=== PATIENT | male | born 1945 | race Caucasian/White ===

== ENCOUNTER 2021-12-19 06:16 | Emergency (ER) | payer MEDICARE, BC ==
[2021-12-19] MEDS ORDERED: Ketorolac Tromethamine 30 MG/ML VIAL ONE (06:31)
[2021-12-19] MEDS ORDERED: HYDROcodone/Acetaminophen 5/325 mg Tablet ONE (06:31)
== END 2021-12-19 08:12 | disposition home or self-care (01) ==
LOC: CSHERS 06:16
DX: M25.461 Effusion, right knee (principal); I48.91 Unspecified atrial fibrillation; I50.9 Heart failure, unspecified; Z79.899 Other long term (current) drug therapy
CPT/HCPCS: 96374; J1885

== ENCOUNTER 2023-01-20 07:20 | Emergency (ER) | payer MEDICARE, BC ==
[2023-01-20 08:11] LABS: #Eosinphils 0.1 10x3/uL (0.0-0.5); #Monocytes 0.5 10x3/uL (0.0-1.1); #Neutrophils 2.7 10x3/uL (1.5-8.4); %Basophils 0.6 % (0.0-2.0); %Eosinophils 1.3 % (0.0-6.0); %Lymphocytes 32.2 % (18.0-47.0); %Monocytes 9.5 % (0.0-10.0); %Neutrophils 56.2 % (40.0-75.0); Hematocrit 37.8 % (38.8-50.0); Hemoglobin 12.8 g/dL (13.5-17.5); Mean Corpuscular HGB CONC 33.9 g/dL (32.0-36.0); Mean Corpuscular Hemoglobin 32.2 pg (27.0-33.0); Mean Corpuscular Volume 95.2 fl (81.2-95.1); Mean Platelet Volume 10.2 fl (7.4-10.4); Platelet Count 161 10x3/uL (150-450); RBC Distribution Width 13.9 % (11.5-14.5); Red Blood Cell (RBC) Count 3.97 10x6/uL (4.32-5.72); White Blood Cell (WBC) Count 4.7 10x3/uL (3.5-10.5)
[2023-01-20 08:27] LABS: ALT (SGPT) 14 U/L (8-55); AST (SGOT) 24 U/L (5-34); Albumin 3.9 g/dL (3.4-4.8); Alkaline Phosphatase 142 U/L (40-110); Anion Gap 16 mmol/L (10-20); BUN (Urea Nitrogen) 18 mg/dL (8.4-25.7); Bilirubin, Total 1.1 mg/dL (0.2-1.2); Calc. Creatinine Clearance 0 mL/min (70-130); Calcium 8.5 mg/dL (7.8-10.44); Carbon Dioxide 23 mmol/L (23-31); Chloride 106 mmol/L (98-107); Estimated GFR 88; Globulin 2.9 g/dL (2.4-3.5); Glucose 97 mg/dL (83-110); Potassium 4.3 mmol/L (3.5-5.1); Protein, Total 6.8 g/dL (5.8-8.1); Sodium 141 mmol/L (136-145)
[2023-01-20 08:36] LABS: INR-International Normal Ratio 1.2; PTT 38.4 sec (22.0-33.0); Prothrombin Time 12.6 sec (9.5-12.1)
[2023-01-20] MEDS ORDERED: Iopamidol 300 61% 100 ML VIAL FS ONE (15:45)
== END 2023-01-20 10:55 | disposition home or self-care (01) ==
LOC: CSHERS 07:20
DX: K57.92 Diverticulitis of intestine, part unspecified, without perforation or abscess without bleeding (principal); K62.5 Hemorrhage of anus and rectum; K21.9 Gastro-esophageal reflux disease without esophagitis; I48.91 Unspecified atrial fibrillation
CPT/HCPCS: 74177; 80053; 82274; 85025; 85610; 85730; 86850; 86900; 86901; Q9967

== ENCOUNTER 2023-03-15 06:25 | Observation (INO) | payer MEDICARE, BC ==
[2023-03-15 07:19] LABS: ALT (SGPT) 18 U/L (8-55); AST (SGOT) 24 U/L (5-34); Albumin 3.8 g/dL (3.4-4.8); Alkaline Phosphatase 144 U/L (40-110); Anion Gap 13 mmol/L (10-20); BUN (Urea Nitrogen) 25 mg/dL (8.4-25.7); Bilirubin, Total 1.2 mg/dL (0.2-1.2); Calc. Creatinine Clearance 0 mL/min (70-130); Calcium 8.6 mg/dL (7.8-10.44); Carbon Dioxide 24 mmol/L (23-31); Chloride 104 mmol/L (98-107); Estimated GFR 81; Globulin 2.8 g/dL (2.4-3.5); Glucose 97 mg/dL (83-110); INR-International Normal Ratio 1.1; Iron 97 ug/dL (65-175); Iron Binding Capacity, Total 380 mcg/dL (261-462); PTT 27.3 sec (22.0-33.0); Potassium 4.2 mmol/L (3.5-5.1); Protein, Total 6.6 g/dL (5.8-8.1); Prothrombin Time 11.9 sec (9.5-12.1); Sodium 137 mmol/L (136-145)
[2023-03-15 07:24] LABS: #Eosinphils 0.1 10x3/uL (0.0-0.5); #Monocytes 0.5 10x3/uL (0.0-1.1); #Neutrophils 2.8 10x3/uL (1.5-8.4); %Basophils 0.8 % (0.0-2.0); %Eosinophils 1.7 % (0.0-6.0); %Lymphocytes 26.8 % (18.0-47.0); %Monocytes 10.6 % (0.0-10.0); %Neutrophils 59.9 % (40.0-75.0); Hemoglobin 12.3 g/dL (13.5-17.5); Mean Corpuscular HGB CONC 34.2 g/dL (32.0-36.0); Mean Corpuscular Volume 96.5 fl (81.2-95.1); Platelet Count 146 10x3/uL (150-450); RBC Distribution Width 13.7 % (11.5-14.5); Red Blood Cell (RBC) Count 3.73 10x6/uL (4.32-5.72); White Blood Cell (WBC) Count 4.7 10x3/uL (3.5-10.5)
[2023-03-15] MEDS ORDERED: Acetaminophen 325 MG TAB PO PRN (08:51)
[2023-03-15] MEDS ORDERED: Amlodipine 5 MG TAB PO SCH (10:45)
[2023-03-15] MEDS ORDERED: ALPRAZolam 0.25 MG TAB PO SCH (10:45)
[2023-03-15] MEDS ORDERED: Multivitamin W/ Minerals 1 TAB PO SCH (11:00)
[2023-03-15] MEDS ORDERED: Senokot S 8.6-50 MG TAB PO SCH (11:00)
[2023-03-15] MEDS ORDERED: Magnesium Oxide 400 MG TAB PO SCH (11:00)
[2023-03-15] MEDS ORDERED: GoLYTELY 4,000 ml Bottle PO SCH (16:00)
[2023-03-15 16:36] VITALS: BMI 26.2
[2023-03-15] MEDS: Carvedilol 3.125 MG TAB PO SCH (16:48)
[2023-03-15] MEDS: ALPRAZolam 0.25 MG TAB PO SCH (21:33)
[2023-03-15] MEDS: Tamsulosin HCl 0.4 MG CAP PO SCH (21:33)
[2023-03-15] MEDS: Senokot S 8.6-50 MG TAB PO SCH (21:59)
[2023-03-16 04:32] LABS: Anion Gap 13 mmol/L (10-20); BUN (Urea Nitrogen) 15 mg/dL (8.4-25.7); Calc. Creatinine Clearance 96 mL/min (70-130); Calcium 8.3 mg/dL (7.8-10.44); Carbon Dioxide 27 mmol/L (23-31); Chloride 106 mmol/L (98-107); Estimated GFR 90; Glucose 86 mg/dL (83-110); Potassium 3.9 mmol/L (3.5-5.1); Sodium 142 mmol/L (136-145)
[2023-03-16 04:42] LABS: #Eosinphils 0.1 10x3/uL (0.0-0.5); #Monocytes 0.6 10x3/uL (0.0-1.1); #Neutrophils 2.2 10x3/uL (1.5-8.4); %Basophils 0.6 % (0.0-2.0); %Eosinophils 1.4 % (0.0-6.0); %Lymphocytes 40.8 % (18.0-47.0); %Monocytes 12.1 % (0.0-10.0); %Neutrophils 44.9 % (40.0-75.0); Hematocrit 32.2 % (38.8-50.0); Hemoglobin 10.9 g/dL (13.5-17.5); Mean Corpuscular HGB CONC 33.9 g/dL (32.0-36.0); Mean Corpuscular Hemoglobin 32.6 pg (27.0-33.0); Mean Corpuscular Volume 96.4 fl (81.2-95.1); Mean Platelet Volume 10.8 fl (7.4-10.4); Platelet Count 137 10x3/uL (150-450); RBC Distribution Width 13.9 % (11.5-14.5); Red Blood Cell (RBC) Count 3.34 10x6/uL (4.32-5.72)
[2023-03-16] MEDS ORDERED: FLU VACC QS2023(65UP)/MF59C/PF 60 MCG/0.5 ML SYRINGE IM ONE (09:00)
[2023-03-16] MEDS: Magnesium Oxide 400 MG TAB PO SCH (09:07)
[2023-03-16] MEDS: Multivitamin W/ Minerals 1 TAB PO SCH (09:08)
[2023-03-16] MEDS: Carvedilol 3.125 MG TAB PO SCH ×2 (09:08→17:48)
[2023-03-16] MEDS: ALPRAZolam 0.25 MG TAB PO SCH ×2 (09:09→20:44)
[2023-03-16] MEDS: Amlodipine 5 MG TAB PO SCH (09:11)
[2023-03-16] MEDS: Senokot S 8.6-50 MG TAB PO SCH ×2 (09:21→20:43)
[2023-03-16] MEDS ORDERED: PROPOFOL 20 ML ONE ×2 (12:11→12:31)
[2023-03-16] MEDS: Tamsulosin HCl 0.4 MG CAP PO SCH (20:43)
[2023-03-17] MEDS: ALPRAZolam 0.25 MG TAB PO SCH (08:24)
[2023-03-17] MEDS: Multivitamin W/ Minerals 1 TAB PO SCH (08:24)
[2023-03-17] MEDS: Magnesium Oxide 400 MG TAB PO SCH (08:24)
[2023-03-17] MEDS: Carvedilol 3.125 MG TAB PO SCH (08:24)
[2023-03-17] MEDS: Amlodipine 5 MG TAB PO SCH (08:24)
[2023-03-17] MEDS: Senokot S 8.6-50 MG TAB PO SCH (08:49)
[2023-03-17 09:10] LABS: Anion Gap 12 mmol/L (10-20); BUN (Urea Nitrogen) 9 mg/dL (8.4-25.7); Calc. Creatinine Clearance 86 mL/min (70-130); Calcium 8.1 mg/dL (7.8-10.44); Carbon Dioxide 25 mmol/L (23-31); Chloride 105 mmol/L (98-107); Estimated GFR 87; Glucose 145 mg/dL (83-110); Potassium 4.1 mmol/L (3.5-5.1); Sodium 138 mmol/L (136-145)
[2023-03-17 09:21] LABS: Hematocrit 33.4 % (38.8-50.0); Hemoglobin 11.2 g/dL (13.5-17.5)
[2023-03-17 12:29] VITALS: BP 133/86; TEMP 98.3
== END 2023-03-17 13:20 | disposition home or self-care (01) ==
LOC: SUATTDRO 06:25 → CSHERS 06:25 → CSHTELE 10:24
PROVIDERS: ADMIT Internal Medicine; ATTEND Internal Medicine
DX: K57.30 Diverticulosis of large intestine without perforation or abscess without bleeding (principal); K64.8 Other hemorrhoids; K52.9 Noninfective gastroenteritis and colitis, unspecified; D50.0 Iron deficiency anemia secondary to blood loss (chronic); I25.10 Atherosclerotic heart disease of native coronary artery without angina pectoris; I48.91 Unspecified atrial fibrillation; F41.9 Anxiety disorder, unspecified; K21.9 Gastro-esophageal reflux disease without esophagitis; N40.0 Benign prostatic hyperplasia without lower urinary tract symptoms; Z90.49 Acquired absence of other specified parts of digestive tract; Z90.89 Acquired absence of other organs; Z98.890 Other specified postprocedural states; Z79.01 Long term (current) use of anticoagulants; Z79.899 Other long term (current) drug therapy
CPT/HCPCS: 43235; 80048 ×2; 80053; 82728; 83540; 83550; 85014; 85018; 85025 ×2; 85610; 85730; 86850; 86900; 86901; 99285; G0378 ×3; 36415; J2704

== ENCOUNTER 2024-11-11 12:49 | Inpatient (IN) | payer MEDICARE ==
[~2024-11-11 12:49] MED LIST: Iopamidol 300 61% 100 ML VIAL FS ONE
[2024-11-11 13:37] LABS: Anion Gap 13 mmol/L (10-20); BUN (Urea Nitrogen) 19 mg/dL (8.4-25.7); Calc. Creatinine Clearance 0 mL/min (70-130); Calcium 8.4 mg/dL (7.8-10.44); Carbon Dioxide 24 mmol/L (23-31); Chloride 105 mmol/L (98-107); Glucose 95 mg/dL (83-110); Potassium 4.1 mmol/L (3.5-5.1); Sodium 138 mmol/L (136-145)
[2024-11-11 13:43] LABS: #Basophils 0.04 10x3/uL (0.0-0.2); #Eosinophils 0.04 10x3/uL (0.0-0.5); #Monocytes 0.39 10x3/uL (0.0-1.1); #Neutrophils 2.21 10x3/uL (1.5-8.4); %Basophils 1.0 % (0.0-2.0); %Eosinophils 1.0 % (0.0-6.0); %Lymphocytes 34.9 % (18.0-47.0); %Monocytes 9.4 % (0.0-10.0); %Neutrophils 53.5 % (40.0-75.0); Hematocrit 38.3 % (38.8-50.0); Hemoglobin 12.9 g/dL (13.5-17.5); Mean Corpuscular Hemoglobin 32.1 pg (27.0-33.0); Mean Corpuscular Volume 95.3 fL (81.2-95.1); Platelet Count 146 10x3/uL (150-450); Red Blood Cell (RBC) Count 4.02 10x6/uL (4.32-5.72); White Blood Cell (WBC) Count 4.13 10x3/uL (3.5-10.5)
[2024-11-11 13:57] LABS: INR-International Normal Ratio 1.2; PTT 31.3 sec (22.0-33.0); Prothrombin Time 12.6 sec (9.5-12.1)
[2024-11-11 14:02] LABS: ALT (SGPT) 18 U/L (Less than 45); AST (SGOT) 29 U/L (11-34); Albumin 3.8 g/dL (3.1-4.5); Alkaline Phosphatase 149 U/L (40-110); Anion Gap 13 mmol/L (10-20); BUN (Urea Nitrogen) 20 mg/dL (8.4-25.7); Bilirubin, Total 1.1 mg/dL (0.3-1.2); Calc. Creatinine Clearance 0 mL/min (70-130); Calcium 8.2 mg/dL (7.8-10.44); Carbon Dioxide 26 mmol/L (23-31); Chloride 105 mmol/L (98-107); Globulin 2.8 g/dL (2.4-3.5); Glucose 92 mg/dL (83-110); Lipase 15 U/L (8-78); Magnesium 2.0 mg/dL (1.6-2.6); Potassium 4.0 mmol/L (3.5-5.1); Sodium 140 mmol/L (136-145)
[2024-11-11 14:05] LABS: Troponin I 0.013 ng/mL (< 0.028)
[2024-11-11] MEDS ORDERED: Pantoprazole 40 MG VIAL ONE (15:31)
[2024-11-11 17:21] VITALS: BMI 25.0
[2024-11-11] MEDS ORDERED: Ondansetron PF 4 MG/2 ML Vial IVP PRN (18:39)
[2024-11-11] MEDS ORDERED: Acetaminophen 325 MG TAB PO PRN (18:39)
[2024-11-11] MEDS ORDERED: Electrolyte Replacement Protocol 1 EACH FS PRN (18:45)
[2024-11-11] MEDS: GoLYTELY 4,000 ml Bottle PO SCH (20:40)
[2024-11-11] MEDS: Magnesium 2 GM/50 ML(in water) 2 GM in Premix 1 BAG IVPB SCH (20:41)
[2024-11-11] MEDS: Calcium Gluc 4.6 MEQ/10 ML (100 MG/ML) SLOW IVP SCH (22:52)
[2024-11-11] MEDS: ALPRAZolam 0.25 MG TAB PO PRN (22:52)
[2024-11-12 06:03] LABS: Anion Gap 15 mmol/L (10-20); BUN (Urea Nitrogen) 13 mg/dL (8.4-25.7); Calc. Creatinine Clearance 88 mL/min (70-130); Calcium 8.4 mg/dL (7.8-10.44); Carbon Dioxide 26 mmol/L (23-31); Chloride 104 mmol/L (98-107); Glucose 95 mg/dL (83-110); Magnesium 2.3 mg/dL (1.6-2.6); Potassium 4.1 mmol/L (3.5-5.1); Sodium 141 mmol/L (136-145)
[2024-11-12 06:09] LABS: #Basophils 0.04 10x3/uL (0.0-0.2); #Eosinophils 0.06 10x3/uL (0.0-0.5); #Monocytes 0.47 10x3/uL (0.0-1.1); #Neutrophils 1.93 10x3/uL (1.5-8.4); %Basophils 1.1 % (0.0-2.0); %Eosinophils 1.7 % (0.0-6.0); %Lymphocytes 30.9 % (18.0-47.0); %Monocytes 12.9 % (0.0-10.0); %Neutrophils 53.1 % (40.0-75.0); Hematocrit 37.2 % (38.8-50.0); Hemoglobin 12.9 g/dL (13.5-17.5); Mean Corpuscular Hemoglobin 33.1 pg (27.0-33.0); Mean Corpuscular Volume 95.4 fL (81.2-95.1); Platelet Count 132 10x3/uL (150-450); Red Blood Cell (RBC) Count 3.90 10x6/uL (4.32-5.72); White Blood Cell (WBC) Count 3.63 10x3/uL (3.5-10.5)
[2024-11-12 06:12] LABS: Troponin I 0.014 ng/mL (< 0.028)
[2024-11-12] MEDS: Pantoprazole 40 MG VIAL IVP SCH (09:27)
[2024-11-12] MEDS ORDERED: Lidocaine 1% PF 5 ML VIAL ONE (14:31)
[2024-11-12] MEDS ORDERED: PROPOFOL 40 ML ONE (14:31)
[2024-11-12] MEDS ORDERED: PHENYLEPHRINE-NS 100 MCG/ML 10 ML SYRINGE ONE (15:09)
[2024-11-12] MEDS ORDERED: PROPOFOL 20 ML ONE (15:26)
[2024-11-12] MEDS: Losartan 25 MG TAB PO SCH (20:11)
[2024-11-13 04:23] LABS: #Basophils 0.03 10x3/uL (0.0-0.2); #Eosinophils 0.07 10x3/uL (0.0-0.5); #Monocytes 0.49 10x3/uL (0.0-1.1); #Neutrophils 2.31 10x3/uL (1.5-8.4); %Basophils 0.7 % (0.0-2.0); %Eosinophils 1.6 % (0.0-6.0); %Lymphocytes 33.8 % (18.0-47.0); %Monocytes 11.2 % (0.0-10.0); %Neutrophils 52.7 % (40.0-75.0); Hematocrit 36.8 % (38.8-50.0); Hemoglobin 12.9 g/dL (13.5-17.5); Mean Corpuscular Hemoglobin 33.4 pg (27.0-33.0); Mean Corpuscular Volume 95.3 fL (81.2-95.1); Platelet Count 132 10x3/uL (150-450); Red Blood Cell (RBC) Count 3.86 10x6/uL (4.32-5.72); White Blood Cell (WBC) Count 4.38 10x3/uL (3.5-10.5)
[2024-11-13 04:43] LABS: ALT (SGPT) 15 U/L (Less than 45); AST (SGOT) 28 U/L (11-34); Albumin 3.5 g/dL (3.1-4.5); Alkaline Phosphatase 133 U/L (40-110); Anion Gap 15 mmol/L (10-20); BUN (Urea Nitrogen) 10 mg/dL (8.4-25.7); Bilirubin, Total 1.0 mg/dL (0.3-1.2); Calc. Creatinine Clearance 83 mL/min (70-130); Calcium 8.0 mg/dL (7.8-10.44); Carbon Dioxide 24 mmol/L (23-31); Chloride 106 mmol/L (98-107); Globulin 2.9 g/dL (2.4-3.5); Glucose 83 mg/dL (83-110); Potassium 3.9 mmol/L (3.5-5.1); Sodium 141 mmol/L (136-145)
[2024-11-13] MEDS: Carvedilol 6.25 MG TAB PO SCH (09:47)
[2024-11-13 12:53] VITALS: BP 139/80; TEMP 98.2
== END 2024-11-13 13:59 | disposition home or self-care (01) | DRG 378 ==
LOC: CSHERS 12:49 → CSHTELE 15:29
PROVIDERS: ADMIT Internal Medicine; ATTEND Internal Medicine
PROC: 0DB78ZX Excision of Stomach, Pylorus, Via Natural or Artificial Opening Endoscopic, Diagnostic (ICD-10-PCS; principal; 2024-11-12)
PROC: 0DBN8ZX Excision of Sigmoid Colon, Via Natural or Artificial Opening Endoscopic, Diagnostic (ICD-10-PCS; 2024-11-12)
PROC: 0DBL8ZX Excision of Transverse Colon, Via Natural or Artificial Opening Endoscopic, Diagnostic (ICD-10-PCS; 2024-11-12)
DX: K57.31 Diverticulosis of large intestine without perforation or abscess with bleeding (principal); I45.2 Bifascicular block; I50.32 Chronic diastolic (congestive) heart failure; I48.20 Chronic atrial fibrillation, unspecified; I11.0 Hypertensive heart disease with heart failure; R00.1 Bradycardia, unspecified; N40.0 Benign prostatic hyperplasia without lower urinary tract symptoms; K21.9 Gastro-esophageal reflux disease without esophagitis; E78.2 Mixed hyperlipidemia; K64.8 Other hemorrhoids; I25.5 Ischemic cardiomyopathy; I25.118 Atherosclerotic heart disease of native coronary artery with other forms of angina pectoris; Z79.899 Other long term (current) drug therapy; Z90.49 Acquired absence of other specified parts of digestive tract; Z79.01 Long term (current) use of anticoagulants
CPT/HCPCS: 36415; 74177; 80048; 80053; 83605; 83690; 83735; 84100; 84443; 84484; 85025; 85610; 85730; 86850; 86900; 86901; 88305; 88342; 93005; 93010; 94760; 96374; J0612; J2470; J2704; J3475; J7030; Q9967